=== PATIENT | male | born 1970 | race Caucasian/White ===

== ENCOUNTER 2017-05-06 12:30 | Emergency (ER) | payer BC, OTHER ==
[2017-05-06 12:48] VITALS: BP 128/83
[2017-05-06 12:53] LABS: Urine Bilirubin Negative (NEGATIVE); Urine Ketone Negative (NEGATIVE); Urine Nitrite Negative (NEGATIVE); Urine Protein Negative (NEGATIVE); Urine Specific Gravity <=1.005 SP.GR. (1.005-1.030); Urine Urobilinogen Normal (NORMAL)
[2017-05-06 13:02] LABS: Urine Blood 10 /ul (NEGATIVE)
[2017-05-06 13:03] LABS: Urine Appearance Slightly Cloudy; Urine Bacteria 1+; Urine Color Yellow; Urine RBC None Seen /hpf (0-5); Urine WBC 0-5 /hpf (0-5)
--- OUTSIDE RECORDS SUMMARY | 2017-05-06 13:52 | XMS REPORT | Continuity of Care Document ---
:1970 Author Organization [facility] ([facility]) Address [place] [place] [address] Phone [phone] Care Team Providers Name Role Phone Provider, No-Primary Care Primary Care Provider Unavailable Source Comments This disclosure is being made pursuant to the Care Everywhere program, applicable federal and state laws, and may not contain all informaitonavailable regarding this patient.[facility] ([facility]) Active Allergies and Adverse Reactions Not on File Current Medications Not on file Active Problems Not on file Social History Tobacco Use Types Packs/Day Years Used Date Never Assessed Plan of Care Health Maintenance Due Date Last Done Comments Hepatitis B Vaccine (1 of 3 - Primary Series) 1970 Tdap Vaccine 1982 Lipid Disorder Screening 1989 MMR Vaccine 1989 Td Vaccine 1989 Influenza Vaccine: Seasonal (#1) 06/29/2016 Results from Last 3 Months Not on file
--- OUTSIDE RECORDS SUMMARY | 2017-05-06 13:52 | XMS REPORT | Summary of Care ---
:1970 Author Organization [facility] Address [address] [place] [address] Care Team Providers Name Role Phone Meredithlamarclyde Jules Primary Care Physician Encounter Date(s): 04/24/16 - 04/24/[address] [facility], [address] [place], [place] [address] Discharge Diagnosis: Testicular pain Discharge Disposition: 01 Discharged to Home or Self Care Attending Physician: Edgar Ludwig MD Referring Physician: Arias Yoon DO Vital Signs Most recent to oldest [Reference Range]: 1 Temperature Temporal Artery [36.0-38.0 DegC] 36.9 DegC (04/24/16 1:54 PM) Blood Pressure [90-130/60-90 mmHg] 122/78mmHg (04/24/16 1:54 PM) Mean Arterial Pressure, Cuff 93 mmHg (04/24/16 1:54 PM) Most recent to oldest [Reference Range]: 1 Weight Dosing 90.2 kg (04/24/16 1:54 PM) Weight Measured 90.2 kg (04/24/16 1:54 PM) Problem List No data available for this section Allergies, Adverse Reactions, Alerts No Known Medication Allergies Medications doxycycline hyclate 100 mg oral capsule 1 cap(s), Oral, BID, # 42 cap(s), 0 Refill(s), Start Date: 04/24/16 10:16:00 CDT , Pharmacy: [facility] [place], [place] Start Date: 04/24/16 Stop Date: 05/15/16 Status: Orderedomeprazole 20 mg, Oral, Daily, 0 Refill(s), Start Date: 04/24/16 10:44:00 CDT Start Date: 04/24/16 Status: Ordered Results No data available for this section Immunizations No data available for this section Procedures No data available for this section Social History No data available for this section Assessment and Plan No data available for this section
--- NOTE | 2017-05-06 14:29 | ERNOTE ---
ER Male HPI Stated Complaint: SWOLLEN TESTICLE Time Seen by Provider: 05/06/17 13:07 Source: patient Exam Limitations: no limitations Allergies/Adverse Reactions: Allergies No Known Allergies Allergy (Verified 05/06/17 12:48) Home Medications: HOME MEDICATIONS Omeprazole [Prilosec] 40 mg PO DAILY 09/24/14 [Last Taken Unknown] Sulfamethoxazole/Trimethoprim [Bactrim Ds] 1 tab PO BID #20 tab 05/06/17 [Last Taken Unknown] metroNIDAZOLE [Flagyl] 500 mg PO Q8H #30 tablet 05/06/17 [Last Taken Unknown] - History of Present Illness Narrative: Patient presents with left lower quadrant abdominal pain with pain that goes into the left testicle. Patient has been having these pains off and on for the past 3-4 months and saw his doctor, Dr. Yoon, and was told that he likely had either diverticulitis or perhaps some form of abdominal wall strain. He comes to the ER today because he got a little bit worse over the last few days and he became concerned and he was not able to get in to see his family physician. Timing: Present: constant Quality: Present: moderate Onset Location: Present: LLQ Radiation: Present: scrotal Activities at Onset: Present: none Prior Abdominal Problems: Present: similar symptoms Associated Symptoms: Present: denies symptoms Review of Systems - Review of Systems Constitutional: Present: See HPI EYE: Present: no symptoms reported ENT: Present: no symptoms reported Respiratory: Present: no symptoms reported Cardiology: Present: no symptoms reported Gastrointestinal/Abdominal: Present: See HPI Genitourinary: Present: no symptoms reported Musculoskeletal: Present: no symptoms reported Skin: Present: no symptoms reported Neurological: Present: no symptoms reported Endocrine: Present: no symptoms reported Hematologic/Lymphatic: Present: no symptoms reported Psych: Present: no symptoms reported - Patient's Past Medical History Patient History - Medical: Arthritis, GERD, UTI'S Patient History - Cardiac/Respiratory: No pertinent hx Patient History - Cancer: No Hx of Cancer Patient History - Surgical Procedures: Appendectomy, Other Patient History - Other: None - Social History Living Situations: home Abuse History: No History of abuse Psych History: No pertinent hx Smoking Status: Never smoker Have you smoked in the past 12 months: No Alcohol Use: none Drug Use: none Physical Exam - Physical Exam General Appearance: Present: wd/wn, alert, moderate distress Eye Exam: Normal inspection: bilateral, PERRL: bilateral Ears, Nose, Throat: Present: normal ENT inspection, H, normal pharynx Neck: Present: normal inspection, nontender Respiratory: Present: no respiratory distress, normal breath sounds, no accessory muscle use, chest nontender, lungs clear Cardiovascular/Chest: Present: regular rate, rhythm, no murmur, normal peripheral pulses Gastrointestinal/Abdominal: Present: normal bowel sounds, nondistended, soft, no organomegaly, tenderness, other - LLQ Rectal Exam: Present: deferred Male Genitals Exam: Present: normal genitalia, no hernia, other - patient had a normal examination of the left testicle no overt evidence of any hydrocele or varicocele. He neither had any tenderness in the epididymis. Back Exam: Present: normal inspection, normal range of motion Extremity Exam: Present: normal inspection, non-tender, no edema, normal range of motion Neurological Exam: Present: alert, oriented, normal mood/affect Skin Exam: Present: normal color, warm/dry Lymphatic Exam: Present: no adenopathy ED Progress - Results and Orders Patient's Lab Results:: I have reviewed the patient's lab results. - Vital Signs Patient's Vital Signs:: I have reviewed the patient's vital signs. Vital Signs: Vital Signs 05/06/17 12:45 Temperature 37.1 C Pulse Rate 73 Respiratory 12 Rate Blood Pressure 128/83 O2 Sat by Pulse 95 Oximetry - CT/Ultrasound CT/Ultrasound Narrative: CT results were reviewed. - Progress/Reassessment Chief Complaint: Genitourinary Problem Plan - Plan Plan: Patient will be started on antibiotics for both his diverticulitis as well as his urinary tract infection. Patient agrees to follow up with Dr. Yoon in one to 2 weeks for discussions regarding the diverticulitis. At that time Dr. Yoon will determine whether a colonoscopy would be feasible for Mr. Dodson. Departure Clinical Impression: UTI (urinary tract infection) Qualifiers: Urinary tract infection type: acute cystitis Hematuria presence: with hematuria Qualified Code(s): N30.01 - Acute cystitis with hematuria Diverticulitis Qualifiers: Diverticulitis site: large intestine Diverticulitis bleeding: without bleeding Diverticulitis complication: without perforation or abscess Qualified Code(s): K57.32 - Diverticulitis of large intestine without perforation or abscess without bleeding - Departure Disposition: Home self-care Condition: Good Instructions: Diverticulitis, [id number], Urinary Tract Infection, Adult, [id number] Referrals: Arias Yoon DO [Primary Care Provider] - Prescriptions: Sulfamethoxazole/Trimethoprim [Bactrim Ds] 1 tab PO BID #20 tab metroNIDAZOLE [Flagyl] 500 mg PO Q8H #30 tablet
== END 2017-05-06 14:36 | disposition home or self-care (01) ==
LOC: ER 12:30
DX: N30.01 Acute cystitis with hematuria (principal); K57.32 Diverticulitis of large intestine without perforation or abscess without bleeding; K21.9 Gastro-esophageal reflux disease without esophagitis